=== PATIENT | male | born 1975 | race Caucasian/White ===

== ENCOUNTER 2025-02-22 07:25 | Emergency (ER) | payer OTHER ==
[~2025-02-22] VITALS: Ht 167.6 cm; Wt 120.2 kg
[2025-02-22 07:48] VITALS: TEMP 98.1
[2025-02-22 08:29] LABS: PLATELET COUNT (AUTO) 567 K/uL (150-450); RED BLOOD CELL COUNT(AUTO) 4.38 MIL/uL (4.5-6.0); RED CELL DISTRIBUTION WIDTH 15.5 % (11.5-15.0); WHITE BLOOD COUNT (AUTO) 16.4 K/uL (4.3-11.0)
[2025-02-22] MEDS ORDERED: KETOROLAC TROMETHAMINE INJ 30 MG/ML VIAL ONE (08:32)
[2025-02-22] MEDS: IV NS 0.9% 1,000 ML BAG IV ONE (08:42)
[2025-02-22 08:46] LABS: ASPARTATE AMINOTRANSFERASE 41.0 U/L (15-37); CALCIUM, SERUM 9.5 mg/dL (8.5-10.1); CREATININE 2.6 mg/dL (0.6-1.3); SODIUM SERUM 135.0 mmol/L (136-145); TOTAL PROTEIN, SERUM 8.8 g/dL (6.4-8.2); UREA NITROGEN, BLOOD 64.0 mg/dL (7-18)
[2025-02-22] MEDS: KETOROLAC TROMETHAMINE 15 MG/ML VIAL IV ONE (08:48)
[2025-02-22 08:56] LABS: INR 1.09 (0.91-1.10)
[2025-02-22] MEDS ORDERED: PIPERACI/TAZO 3.375GM/D5W 50ML PB IV ONE (09:19)
[2025-02-22] MEDS: PIPERACILLIN /TAZOBACTAM 3.375 G in IV D5W 50 ML IV ONE (09:30)
[2025-02-22 09:40] LABS: APPEARANCE,URINE CLEAR (CLEAR); BLOOD, URINE NEGATIVE Ery/uL (NEGATIVE); LEUKOCYTE ESTERASE ,URINE NEGATIVE (NEGATIVE); NITRITE, URINE POSITIVE (NEGATIVE); UGLUCOSE NEGATIVE (NEGATIVE)
[2025-02-22 09:48] LABS: ADD URINE CULTURE YES; SQUAMOUS EPITHELIAL CELL,UR None Seen /HPF (None Seen)
[2025-02-22] MEDS ORDERED: AMLO-213 PO (11:09)
[2025-02-22] MEDS ORDERED: HYDR12.55 PO (11:09)
[2025-02-22] MEDS ORDERED: TELM80TA9 PO (11:09)
[2025-02-22 16:43] VITALS: BP 132/67; O2SAT 97
== END 2025-02-22 16:55 ==
LOC: ER 07:25
DX: K65.1 Peritoneal abscess (principal); N17.9 Acute kidney failure, unspecified; N32.9 Bladder disorder, unspecified; I10 Essential (primary) hypertension; K76.0 Fatty (change of) liver, not elsewhere classified; Z46.6 Encounter for fitting and adjustment of urinary device; Z79.899 Other long term (current) drug therapy
CPT/HCPCS: 99285; 74176; 96365; 96361; 96375; 85025; 80048; 87040; 87086; 83605; 83690; 80076; 81001; 36415; 85730; J1885; J2543 ×2; J7060; J7030